=== PATIENT | female | born 1980 | race Hispanic/Latino ===

== ENCOUNTER 2017-08-02 20:37 | Emergency (ER) | payer MEDICAID, OTHER ==
[~2017-08-02 20:37] MED LIST: ACET1TAB12 PO; DOCU-116 PO; IBUP-2077 PO; INSU100C6 SQ; NPH,100V SQ; PREN1TAB89 PO
== END 2017-08-02 21:13 | disposition home or self-care (01) ==
LOC: EDH 20:37
DX: G51.0 Bell's palsy (principal); Z98.890 Other specified postprocedural states; Z72.0 Tobacco use

== ENCOUNTER 2017-08-05 19:24 | Emergency (ER) | payer SELFPAY ==
[2017-08-05 19:43] LABS: BASOPHILS % (AUTO) 0.7 % (0.0-5.0); EOSINOPHILS % (AUTO) 0.1 % (0.0-8.0); HEMATOCRIT 37.7 % (36-48); LYMPHOCYTES % (AUTO) 14.2 % (21.0-51.0); MEAN CORPUSCULAR HEMOGLOBIN 24.8 pg (27.0-33.0); MEAN CORPUSCULAR HGB CONC 32.5 g/dL (32.0-36.0); MEAN CORPUSCULAR VOLUME 76.4 fL (79-99); MONOCYTES % (AUTO) 3.9 % (3.0-13.0); NEUTROPHILS % (AUTO) 81.1 % (40.0-77.0); PLATELET COUNT (AUTO) 445 K/uL (130-400); RED BLOOD CELL COUNT(AUTO) 4.94 MIL/uL (4.00-5.50); RED CELL DISTRIBUTION WIDTH 17.4 % (11.0-15.5); WHITE BLOOD COUNT (AUTO) 14.4 K/uL (4.8-10.8)
[2017-08-05 19:53] LABS: CREATININE 0.7 mg/dL (0.5-1.5); POTASSIUM 3.9 mmol/L (3.5-5.1)
[2017-08-05 19:54] LABS: INR 0.93 (0.85-1.15); PROTHROMBIN TIME 9.8 SEC (9.6-11.6)
[2017-08-05 19:55] LABS: APPEARANCE,URINE Clear (CLEAR); BILIRUBIN,URINE Negative (NEGATIVE); COLOR,URINE Yellow (YELLOW); GLUCOSE, URINE (UA) Negative (NEGATIVE); HCG,QUAL RESULT NEGATIVE (NEGATIVE); KETONES,URINE Negative (NEGATIVE); LEUKOCYTE ESTERASE ,URINE Negative (NEGATIVE); NITRATE,URINE Negative (NEGATIVE); OCCULT BLOOD,URINE Negative (NEGATIVE); PH,URINE 5.5 (5.0-8.0); PROTEIN,URINE Negative (NEGATIVE); UROBILINOGEN,URINE 0.2 mg/dL (0.2-1.0)
[2017-08-05 20:03] LABS: AMPHET/METH SCREEN,URINE NEGATIVE (NEGATIVE); BARBITURATE SCREEN, URINE NEGATIVE (NEGATIVE); BENZODIAZEPINES SCREEN,URINE NEGATIVE (NEGATIVE); CANNABINOID SCREEN,URINE NEGATIVE (NEGATIVE); COCAINE SCREEN,URINE NEGATIVE (NEGATIVE); OPIATE SCREEN,URINE NEGATIVE (NEGATIVE); PHENCYCLIDINE SCREEN,URINE NEGATIVE (NEGATIVE)
[2017-08-05 20:09] LABS: ALBUMIN 3.6 g/dL (3.5-5.0); BILIRUBIN,TOTAL 0.2 mg/dL (0.2-1.0); CREATINE KINASE MB 0.6 ng/mL (0.5-3.6); TOTAL PROTEIN, SERUM 8.9 g/dL (6.0-8.3)
== END 2017-08-05 22:55 | disposition home or self-care (01) ==
LOC: EDH 19:24
DX: G51.0 Bell's palsy (principal); R03.0 Elevated blood-pressure reading, without diagnosis of hypertension; Z98.890 Other specified postprocedural states
CPT/HCPCS: 36415; 70450; 80053; 80305; 81003; 81025; 82550; 82553; 82948; 84484; 85025; 85610; 85730; 93005

== ENCOUNTER 2018-01-22 19:48 | Emergency (ER) | payer OTHER ==
[2018-01-22 20:12] LABS: APPEARANCE,URINE CLOUDY (CLEAR); BILIRUBIN,URINE NEGATIVE (NEGATIVE); COLOR,URINE YELLOW (YELLOW); GLUCOSE, URINE (UA) NEGATIVE (NEGATIVE); KETONES,URINE NEGATIVE (NEGATIVE); LEUKOCYTE ESTERASE ,URINE MODERATE (NEGATIVE); NITRATE,URINE NEGATIVE (NEGATIVE); OCCULT BLOOD,URINE LARGE (NEGATIVE); PROTEIN,URINE 100 (NEGATIVE); UROBILINOGEN,URINE 0.2 mg/dL (0.2-1.0)
[2018-01-22 20:20] LABS: AMPHET/METH SCREEN,URINE NEGATIVE (NEGATIVE); BARBITURATE SCREEN, URINE NEGATIVE (NEGATIVE); BENZODIAZEPINES SCREEN,URINE NEGATIVE (NEGATIVE); CANNABINOID SCREEN,URINE NEGATIVE (NEGATIVE); COCAINE SCREEN,URINE NEGATIVE (NEGATIVE); OPIATE SCREEN,URINE POSITIVE (NEGATIVE); PHENCYCLIDINE SCREEN,URINE NEGATIVE (NEGATIVE)
[2018-01-22 20:22] LABS: BASOPHILS % (AUTO) 0.7 % (0.0-5.0); EOSINOPHILS % (AUTO) 0.5 % (0.0-8.0); HEMATOCRIT 34.4 % (36-48); LYMPHOCYTES % (AUTO) 9.5 % (21.0-51.0); MEAN CORPUSCULAR HEMOGLOBIN 24.8 pg (27.0-33.0); MEAN CORPUSCULAR HGB CONC 32.4 g/dL (32.0-36.0); MEAN CORPUSCULAR VOLUME 76.4 fL (79-99); NEUTROPHILS % (AUTO) 83.3 % (40.0-77.0); PLATELET COUNT (AUTO) 400 K/uL (130-400); RED CELL DISTRIBUTION WIDTH 16.8 % (11.0-15.5); WHITE BLOOD COUNT (AUTO) 13.2 K/uL (4.8-10.8)
[2018-01-22 20:31] LABS: BACTERIA,URINE Few /HPF (None Seen); RBC,URINE 26-50 /HPF (0-1); SQUAMOUS EPITHELIAL CELL,UR Rare /HPF (0-2); WBC,URINE 26-50 /HPF (0-1)
[2018-01-22 20:34] LABS: CREATININE 0.6 mg/dL (0.5-1.5); POTASSIUM 4.1 mmol/L (3.5-5.1)
[2018-01-22 20:37] LABS: ALBUMIN 3.3 g/dL (3.5-5.0); BILIRUBIN,TOTAL 0.3 mg/dL (0.2-1.0); TOTAL PROTEIN, SERUM 8.5 g/dL (6.0-8.3)
[2018-01-22] MEDS ORDERED: ONDANSETRON HCL 4 MG/2 ML VIAL ONE (20:49)
[2018-01-22] MEDS ORDERED: KETOROLAC TROMETHAMINE 30MG/ML ONE (20:49)
[2018-01-22] MEDS ORDERED: PHENAZOPYRIDINE HCL 200 MG TABLET ONE (21:43)
[2018-01-22] MEDS ORDERED: LEVOFLOXACIN 500 MG TABLET ONE (21:43)
== END 2018-01-22 22:03 | disposition home or self-care (01) ==
LOC: EDH 19:48
DX: N12 Tubulo-interstitial nephritis, not specified as acute or chronic (principal); R42 Dizziness and giddiness; Z87.891 Personal history of nicotine dependence
CPT/HCPCS: 36415; 74176; 80053; 80305; 81001; 81025; 85025; 87077; 87088; 87186; 94761; 96361; 96374; 96375; 99285; J1885; J2405

== ENCOUNTER 2018-02-05 22:36 | Inpatient (IN) | payer SELFPAY ==
[~2018-02-05] VITALS: Ht 162.6 cm; Wt 107.1 kg
[2018-02-05] MEDS ORDERED: METOCLOPRAMIDE 10 MG/2 ML VIAL ONE (23:15)
[2018-02-05] MEDS ORDERED: MORPHINE SULFATE 8 MG/ML VIAL ONE (23:16)
[2018-02-05 23:21] LABS: BASOPHILS % (AUTO) 0.6 % (0.0-5.0); HEMATOCRIT 33.7 % (36-48); LYMPHOCYTES % (AUTO) 18.8 % (21.0-51.0); MEAN CORPUSCULAR HEMOGLOBIN 24.6 pg (27.0-33.0); MEAN CORPUSCULAR HGB CONC 32.4 g/dL (32.0-36.0); MEAN CORPUSCULAR VOLUME 76.2 fL (79-99); MONOCYTES % (AUTO) 6.6 % (3.0-13.0); PLATELET COUNT (AUTO) 436 K/uL (130-400); RED BLOOD CELL COUNT(AUTO) 4.43 MIL/uL (4.00-5.50); RED CELL DISTRIBUTION WIDTH 16.5 % (11.0-15.5); WHITE BLOOD COUNT (AUTO) 12.1 K/uL (4.8-10.8)
[2018-02-05 23:34] LABS: CREATININE 0.8 mg/dL (0.5-1.5); POTASSIUM 3.9 mmol/L (3.5-5.1)
[2018-02-05 23:37] LABS: APPEARANCE,URINE SL CLOUDY (CLEAR); BILIRUBIN,URINE NEGATIVE (NEGATIVE); COLOR,URINE YELLOW (YELLOW); GLUCOSE, URINE (UA) NEGATIVE (NEGATIVE); KETONES,URINE NEGATIVE (NEGATIVE); LEUKOCYTE ESTERASE ,URINE MODERATE (NEGATIVE); NITRATE,URINE POSITIVE (NEGATIVE); OCCULT BLOOD,URINE MODERATE (NEGATIVE); PROTEIN,URINE 30 (NEGATIVE); UROBILINOGEN,URINE 0.2 mg/dL (0.2-1.0)
[2018-02-05 23:38] LABS: ALBUMIN 3.3 g/dL (3.5-5.0); BILIRUBIN,TOTAL 0.2 mg/dL (0.2-1.0); TOTAL PROTEIN, SERUM 8.2 g/dL (6.0-8.3)
[2018-02-05 23:39] LABS: HCG,QUAL RESULT NEGATIVE (NEGATIVE)
[2018-02-05 23:47] LABS: RBC,URINE 26-50 /HPF (0-1); WBC,URINE 51-100 /HPF (0-1)
[2018-02-05 23:48] LABS: BACTERIA,URINE Many /HPF (None Seen); SQUAMOUS EPITHELIAL CELL,UR 0-2 /HPF (0-2)
[2018-02-05 23:56] LABS: PLATELET MORPHOLOGY LARGE PLTS PRESENT
[2018-02-06] MEDS ORDERED: IOHEXOL-350 75 ML VIAL IV ONE (00:20)
[2018-02-06] MEDS ORDERED: MORPHINE SULFATE 8 MG/ML VIAL ONE (01:11)
[2018-02-06] MEDS ORDERED: ZOSYN 3.375GM+NS 50ML 50 ML IV ONE (01:11)
[2018-02-06] MEDS ORDERED: SODIUM CHLORIDE 0.9% 50 ML IV ONE (01:11)
[2018-02-06] MEDS: ZOSYN 3.375GM+NS 50ML 50 ML IV SCH ×3 (01:45→18:09)
[2018-02-06] MEDS: SODIUM CHLORIDE 0.9% 1000ML 1,000 ML IV SCH ×4 (02:00→23:21)
[2018-02-06] MEDS ORDERED: PHARMACY COMMUNICATION MISC SCH (02:00)
[2018-02-06 03:25] VITALS: BP 132/92
[2018-02-06] MEDS ORDERED: ACETAMINOPHEN 325 MG TAB PO PRN (04:00)
[2018-02-06] MEDS ORDERED: MORPHINE SULFATE 2 MG/ML 1ML SYG IV PRN (04:00)
[2018-02-06] MEDS ORDERED: ONDANSETRON HCL MDV 20ML 2 MG/ML VIAL IV PRN (04:00)
[2018-02-06 06:12] LABS: BASOPHILS % (AUTO) 0.6 % (0.0-5.0); HEMATOCRIT 29.4 % (36-48); LYMPHOCYTES % (AUTO) 21.4 % (21.0-51.0); MEAN CORPUSCULAR HEMOGLOBIN 23.8 pg (27.0-33.0); MEAN CORPUSCULAR HGB CONC 31.2 g/dL (32.0-36.0); MEAN CORPUSCULAR VOLUME 76.2 fL (79-99); PLATELET COUNT (AUTO) 294 K/uL (130-400); RED BLOOD CELL COUNT(AUTO) 3.86 MIL/uL (4.00-5.50); RED CELL DISTRIBUTION WIDTH 16.7 % (11.0-15.5); WHITE BLOOD COUNT (AUTO) 11.5 K/uL (4.8-10.8)
[2018-02-06 06:21] LABS: INR 0.97 (0.85-1.15); PARTIAL THROMBOPLASTIN TIME 29.9 SEC (26.3-35.5); PROTHROMBIN TIME 10.2 SEC (9.6-11.6)
[2018-02-06 06:27] LABS: ALBUMIN 2.7 g/dL (3.5-5.0); BILIRUBIN,TOTAL 0.1 mg/dL (0.2-1.0); CREATININE 0.6 mg/dL (0.5-1.5); POTASSIUM 3.9 mmol/L (3.5-5.1); TOTAL PROTEIN, SERUM 6.9 g/dL (6.0-8.3)
[2018-02-06 07:54] VITALS: BP 105/64
[2018-02-06] MEDS ORDERED: PNEUMOCOCCAL VACCINE POLYVALENT 0.5 ML/VIAL [PPV] IM ONE (09:00)
[2018-02-06] MEDS ORDERED: ENOXAPARIN SODIUM 40 MG/0.4 ML SYRINGE SQ SCH (09:00)
[2018-02-06] MEDS: FAMOTIDINE/PF 20 MG/2 ML VIAL IV SCH ×2 (09:16→20:25)
[2018-02-06] MEDS: KETOROLAC TROMETHAMINE 30MG/ML IV PRN ×2 (09:23→15:49)
[2018-02-06 11:54] VITALS: BP 98/52
[2018-02-06 15:59] VITALS: BP 116/73
[2018-02-06 19:00] VITALS: BP 132/80
[2018-02-06 23:00] VITALS: BP 102/58
[2018-02-07] MEDS: ZOSYN 3.375GM+NS 50ML 50 ML IV SCH ×3 (01:45→17:36)
[2018-02-07 03:00] VITALS: BP 104/57
[2018-02-07] MEDS: KETOROLAC TROMETHAMINE 30MG/ML IV PRN ×2 (04:13→21:00)
[2018-02-07 05:56] LABS: HEMATOCRIT 28.6 % (36-48); MEAN CORPUSCULAR HEMOGLOBIN 24.2 pg (27.0-33.0); MEAN CORPUSCULAR HGB CONC 32.1 g/dL (32.0-36.0); MEAN CORPUSCULAR VOLUME 75.5 fL (79-99); NUCLEATED RED BLOOD CELLS 0.1 % (0.0-0.19); PLATELET COUNT (AUTO) 318 K/uL (130-400); RED BLOOD CELL COUNT(AUTO) 3.79 MIL/uL (4.00-5.50); RED CELL DISTRIBUTION WIDTH 16.5 % (11.0-15.5); WHITE BLOOD COUNT (AUTO) 7.5 K/uL (4.8-10.8)
[2018-02-07 06:08] LABS: CREATININE 0.6 mg/dL (0.5-1.5); POTASSIUM 3.4 mmol/L (3.5-5.1)
[2018-02-07] MEDS ORDERED: POTASSIUM CHLORIDE 20 MEQ ERTAB PO ONE (06:26)
[2018-02-07] MEDS ORDERED: LIDOCAINE HCL-MPF 1% 2ML VIAL IVP PRN (06:30)
[2018-02-07] MEDS ORDERED: POTASSIUM CHLORIDE 20MEQ/100ML 100 ML IV PRN ×2 (06:30)
[2018-02-07] MEDS ORDERED: POTASSIUM CHLORIDE 20 MEQ ERTAB PO PRN (06:30)
[2018-02-07] MEDS ORDERED: POTASSIUM CHLORIDE 10% ELIXIR 20 MEQ/15 ML UDCUP PO PRN (06:30)
[2018-02-07] MEDS: SODIUM CHLORIDE 0.9% 1000ML 1,000 ML IV SCH ×2 (06:30→18:10)
[2018-02-07 07:56] VITALS: BP 125/73
[2018-02-07] MEDS: FAMOTIDINE/PF 20 MG/2 ML VIAL IV SCH ×2 (08:00→20:51)
[2018-02-07 11:25] VITALS: BP 103/73
[2018-02-07 15:22] VITALS: BP 107/82
[2018-02-07 19:00] VITALS: BP 114/55
[2018-02-07 23:00] VITALS: BP 104/53
[2018-02-08] VITALS (21 sets, daily range): BP systolic 86–132; BP diastolic 52–79
[2018-02-08] MEDS: SODIUM CHLORIDE 0.9% 1000ML 1,000 ML IV SCH ×2 (01:13→18:00)
[2018-02-08] MEDS: ZOSYN 3.375GM+NS 50ML 50 ML IV SCH ×3 (01:44→17:45)
[2018-02-08] MEDS: KETOROLAC TROMETHAMINE 30MG/ML IV PRN ×4 (03:50→21:47)
[2018-02-08] MEDS: FAMOTIDINE/PF 20 MG/2 ML VIAL IV SCH ×2 (09:02→21:47)
[2018-02-08] MEDS ORDERED: LIDOCAINE 1%-EPI 1:100,000 20 ML VIAL IJ ONE (13:23)
[2018-02-08] MEDS ORDERED: BUPIVACAINE/PF 0.25% 30ML VIAL IJ ONE (13:23)
[2018-02-08] MEDS ORDERED: LACTATED RINGERS 1000ML 1,000 ML IV ONE (16:26)
[2018-02-08] MEDS ORDERED: GLYCOPYRROLATE 1 MG/5 ML SYRINGE ONE (16:32)
[2018-02-08] MEDS ORDERED: SUCCINYLCHOLINE 200MG/10ML SYR ONE (16:32)
[2018-02-08] MEDS ORDERED: ONDANSETRON HCL 4 MG/2 ML VIAL ONE ×2 (16:32→16:36)
[2018-02-08] MEDS ORDERED: LIDOCAINE PF 2% 5ML ABBOJECT ONE (16:32)
[2018-02-08] MEDS ORDERED: DEXAMETHASONE SOD PHOSPHATE 10MG/ML 1ML VIAL ONE (16:32)
[2018-02-08] MEDS ORDERED: MIDAZOLAM HCL 1 MG/ML 2ML VIAL ONE (16:32)
[2018-02-08] MEDS ORDERED: NEOSTIGMINE 5MG/5ML SYR IV ONE (16:33)
[2018-02-08] MEDS ORDERED: FENTANYL CITRATE PF 50 MCG/1 ML 2ML VIAL ONE ×2 (16:33→17:00)
[2018-02-08] MEDS ORDERED: ROCURONIUM 10MG/1ML SYR 10 MG/ML ML ONE (16:33)
[2018-02-08] MEDS ORDERED: PROPOFOL 10 MG/ML 20ML VIAL IV ONE (16:33)
[2018-02-08] MEDS ORDERED: IPRATROPIUM/ALBUTEROL SULFATE 3 ML SOLUTION IH ONE (17:55)
[2018-02-08] MEDS ORDERED: MEPERIDINE-PF 25 MG/ML SYG ONE (18:06)
[2018-02-08] MEDS ORDERED: OXYCODONE/ACETAMIN 5/325MG TAB PO PRN (20:45)
[2018-02-08] MEDS: MORPHINE SULFATE 4 MG/1ML SYG IV PRN (23:31)
[2018-02-09] MEDS: ZOSYN 3.375GM+NS 50ML 50 ML IV SCH ×3 (01:31→17:45)
[2018-02-09] MEDS: SODIUM CHLORIDE 0.9% 1000ML 1,000 ML IV SCH (01:32)
[2018-02-09] MEDS: MORPHINE SULFATE 4 MG/1ML SYG IV PRN ×2 (03:53→12:20)
[2018-02-09 04:00] VITALS: BP 112/73
[2018-02-09 07:00] VITALS: BP 125/74
[2018-02-09] MEDS: FAMOTIDINE/PF 20 MG/2 ML VIAL IV SCH (09:41)
[2018-02-09 11:13] VITALS: BP 140/92
[2018-02-09 16:00] VITALS: BP 110/71
[2018-02-09] MEDS ORDERED: LEVO500T2 PO (17:03)
== END 2018-02-09 19:30 | disposition home or self-care (01) | DRG 418 ==
LOC: EDH 22:36 → EDHIP 22:37 → 3AH 02-06 02:50
PROVIDERS: ADMIT Internal Medicine; ATTEND Internal Medicine
PROC: 3E02340 Introduction of Influenza Vaccine into Muscle, Percutaneous Approach (ICD-10-PCS; 2018-02-06)
PROC: 3E02340 Introduction of Influenza Vaccine into Muscle, Percutaneous Approach (ICD-10-PCS; 2018-02-07)
PROC: 0FT44ZZ Resection of Gallbladder, Percutaneous Endoscopic Approach (ICD-10-PCS; principal; 2018-02-08 16:40)
DX: K80.00 Calculus of gallbladder with acute cholecystitis without obstruction (principal); N10 Acute pyelonephritis; Z68.41 Body mass index [BMI] 40.0-44.9, adult; K57.90 Diverticulosis of intestine, part unspecified, without perforation or abscess without bleeding; E66.01 Morbid (severe) obesity due to excess calories; K76.0 Fatty (change of) liver, not elsewhere classified; B96.20 Unspecified Escherichia coli [E. coli] as the cause of diseases classified elsewhere; E11.9 Type 2 diabetes mellitus without complications; Z16.24 Resistance to multiple antibiotics; Z83.3 Family history of diabetes mellitus; Z87.891 Personal history of nicotine dependence; Z82.5 Family history of asthma and other chronic lower respiratory diseases; Z23 Encounter for immunization; Z79.4 Long term (current) use of insulin; Z82.49 Family history of ischemic heart disease and other diseases of the circulatory system
CPT/HCPCS: 36415; 74177; 76705; 80048; 80053; 81001; 81025; 83605; 83690; 85025; 85027; 85610; 85730; 87040; 87077; 87088; 87186; 87324; 88304; 93005; 94640; G0008; J0330; J1100; J1885; J2001; J2175; J2250; J2270; J2405; J2543; J2704; J2710; J2765; J3010; J3490; J7030; J7120; Q2038; Q9967

== ENCOUNTER 2018-05-28 20:56 | Emergency (ER) | payer OTHER ==
[~2018-05-28 20:56] MED LIST changes: +LEVO500T2 PO
== END 2018-05-28 23:29 | disposition home or self-care (01) ==
LOC: EDH 20:56
DX: H10.9 Unspecified conjunctivitis (principal)
CPT/HCPCS: 99281

== ENCOUNTER 2018-08-16 16:44 | Emergency (ER) | payer OTHER ==
[2018-08-16 17:38] LABS: APPEARANCE,URINE Clear (CLEAR); BILIRUBIN,URINE Negative (NEGATIVE); COLOR,URINE Yellow (YELLOW); GLUCOSE, URINE (UA) Negative (NEGATIVE); KETONES,URINE Trace mg/dL (NEGATIVE); LEUKOCYTE ESTERASE ,URINE Trace (NEGATIVE); NITRATE,URINE Negative (NEGATIVE); OCCULT BLOOD,URINE Negative (NEGATIVE); PROTEIN,URINE Negative (NEGATIVE)
[2018-08-16 17:51] LABS: HCG,QUAL RESULT NEGATIVE (NEGATIVE)
[2018-08-16 18:12] LABS: BACTERIA,URINE Few /HPF (None Seen); RBC,URINE 0-1 /HPF (0-1); SQUAMOUS EPITHELIAL CELL,UR Few /HPF (0-2)
[2018-08-16] MEDS ORDERED: SODIUM CHLORIDE 0.9% 1000ML 1,000 ML IV ONE (18:25)
[2018-08-16] MEDS ORDERED: ONDANSETRON HCL 4 MG/2 ML VIAL ONE (18:26)
[2018-08-16] MEDS ORDERED: KETOROLAC TROMETHAMINE 30MG/ML ONE (18:26)
[2018-08-16 18:34] LABS: BASOPHILS % (AUTO) 0.5 % (0.0-5.0); EOSINOPHILS % (AUTO) 1.9 % (0.0-8.0); HEMATOCRIT 33.1 % (36-48); LYMPHOCYTES % (AUTO) 24.9 % (21.0-51.0); MEAN CORPUSCULAR HEMOGLOBIN 24.8 pg (27.0-33.0); MEAN CORPUSCULAR HGB CONC 32.7 g/dL (32.0-36.0); MEAN CORPUSCULAR VOLUME 75.8 fL (79-99); MONOCYTES % (AUTO) 8.2 % (3.0-13.0); NEUTROPHILS % (AUTO) 64.5 % (40.0-77.0); PLATELET COUNT (AUTO) 328 K/uL (130-400); RED BLOOD CELL COUNT(AUTO) 4.36 MIL/uL (4.00-5.50); RED CELL DISTRIBUTION WIDTH 17.7 % (11.0-15.5); WHITE BLOOD COUNT (AUTO) 7.7 K/uL (4.8-10.8)
[2018-08-16 18:42] LABS: CREATININE 0.7 mg/dL (0.5-1.5); POTASSIUM 3.6 mmol/L (3.5-5.1)
[2018-08-16 18:55] LABS: ALBUMIN 3.2 g/dL (3.5-5.0); BILIRUBIN,TOTAL 0.2 mg/dL (0.2-1.0); TOTAL PROTEIN, SERUM 7.8 g/dL (6.0-8.3)
[2018-08-16] MEDS ORDERED: MORPHINE SULFATE 4 MG/1ML SYG ONE (20:20)
== END 2018-08-16 20:40 | disposition home or self-care (01) ==
LOC: EDH 16:44
DX: S93.491A Sprain of other ligament of right ankle, initial encounter (principal); R10.84 Generalized abdominal pain; F32.9 Major depressive disorder, single episode, unspecified; F41.9 Anxiety disorder, unspecified; Z90.49 Acquired absence of other specified parts of digestive tract; Z87.891 Personal history of nicotine dependence; X50.1XXA Overexertion from prolonged static or awkward postures, initial encounter; Y93.01 Activity, walking, marching and hiking; Y92.238 Other place in hospital as the place of occurrence of the external cause; Y99.8 Other external cause status
CPT/HCPCS: 36415; 73610; 74176; 80053; 81001; 81025; 82150; 83690; 84702; 85025; 96374; 96375; 99285; J1885; J2270; J2405; J7030

== ENCOUNTER 2019-08-09 03:13 | Emergency (ER) | payer OTHER ==
[2019-08-09] MEDS ORDERED: ACETAMINOPHEN EXTRA STRENGTH 500 MG TABLET ONE (03:54)
== END 2019-08-09 04:09 | disposition home or self-care (01) ==
LOC: EDH 03:13
DX: M54.2 Cervicalgia (principal); M54.6 Pain in thoracic spine; F41.9 Anxiety disorder, unspecified; F32.9 Major depressive disorder, single episode, unspecified; Z72.0 Tobacco use; Z98.890 Other specified postprocedural states; V47.5XXA Car driver injured in collision with fixed or stationary object in traffic accident, initial encounter; Y93.89 Activity, other specified; Y92.89 Other specified places as the place of occurrence of the external cause; Y99.8 Other external cause status

== ENCOUNTER 2022-04-28 12:05 | Emergency (ER) | payer MEDICAID, OTHER ==
[~2022-04-28] VITALS: Ht 162.6 cm; Wt 104.3 kg
[2022-04-28 12:15] VITALS: BP 126/73
[2022-04-28] MEDS ORDERED: 0.9%NACL 1000ML 1,000 ML IV ONE (12:30)
[2022-04-28 13:22] LABS: ABG BASE EXCESS -0.8 mmol/L (-2.0-3.0); ABG HCO3 23.5 mmol/L (21.0-28.0); ABG PCO2 38 mmHg (32-45)
[2022-04-28] MEDS ORDERED: METOCLOPRAMIDE 10 MG/2 ML VIAL IVP ONE (13:30)
[2022-04-28] MEDS ORDERED: DiphenhydrAMINE HCL 50 MG/ML VIAL IV ONE (13:30)
[2022-04-28] MEDS ORDERED: KETOROLAC 15MG/ML VIAL (15MG/ML) IV ONE (13:30)
[2022-04-28 13:37] LABS: BASOPHILS % (AUTO) 0.3 % (0.0-5.0); EOSINOPHILS % (AUTO) 1.7 % (0.0-8.0); HEMATOCRIT 36.1 % (36-48); LYMPHOCYTES % (AUTO) 23.1 % (21.0-51.0); MEAN CORPUSCULAR HEMOGLOBIN 25.5 pg (27.0-33.0); MEAN CORPUSCULAR HGB CONC 31.6 g/dL (32.0-36.0); MEAN CORPUSCULAR VOLUME 80.8 fL (79-99); MONOCYTES % (AUTO) 6.7 % (3.0-13.0); NEUTROPHILS % (AUTO) 67.8 % (40.0-77.0); PLATELET COUNT (AUTO) 290 K/uL (130-400); RED BLOOD CELL COUNT(AUTO) 4.47 MIL/uL (4.00-5.50); RED CELL DISTRIBUTION WIDTH 14.7 % (11.0-15.5); WHITE BLOOD COUNT (AUTO) 9.6 K/uL (4.8-10.8)
[2022-04-28 13:50] LABS: CREATININE 0.7 mg/dL (0.5-1.5); POTASSIUM 3.7 mmol/L (3.5-5.1)
[2022-04-28 13:55] LABS: ALBUMIN 3.1 g/dL (3.5-5.0); TOTAL PROTEIN, SERUM 7.5 g/dL (6.0-8.3)
[2022-04-28 13:56] LABS: APPEARANCE,URINE CLOUDY (CLEAR); BILIRUBIN,URINE NEGATIVE (NEGATIVE); COLOR,URINE YELLOW (YELLOW); GLUCOSE, URINE (UA) 150 mg/dL (NEGATIVE); KETONES,URINE NEGATIVE (NEGATIVE); LEUKOCYTE ESTERASE ,URINE 75 Leu/uL (NEGATIVE); NITRATE,URINE NEGATIVE (NEGATIVE); OCCULT BLOOD,URINE NEGATIVE (NEGATIVE); PH,URINE 5.5 (5.0-8.0); PROTEIN,URINE 20 mg/dL (NEGATIVE); UROBILINOGEN,URINE 0.2 mg/dL (0.2-1.0)
[2022-04-28 14:02] LABS: HCG,QUALITATIVE URINE NEGATIVE (NEGATIVE)
[2022-04-28 14:05] LABS: BACTERIA,URINE RARE /HPF (None Seen); MUCUS,URINE FEW LPF (None Seen); SQUAMOUS EPITHELIAL CELL,UR MOD /HPF (0-2)
[2022-04-28] MEDS ORDERED: CEPH500B PO (14:39)
== END 2022-04-28 14:51 | disposition home or self-care (01) ==
LOC: EDH 12:05
DX: E11.65 Type 2 diabetes mellitus with hyperglycemia (principal); R30.0 Dysuria; F41.9 Anxiety disorder, unspecified; F32.9 Major depressive disorder, single episode, unspecified; Z90.49 Acquired absence of other specified parts of digestive tract; Z98.890 Other specified postprocedural states; Z79.899 Other long term (current) drug therapy
CPT/HCPCS: 99284; 96374; 96375; 96361; 80053; 82803; 85025; 87088; 82010; 81001; 81025; 36415; 36600; J1200; J7030; J2765; J1885

== ENCOUNTER 2022-08-21 09:00 | Observation (INO) | payer MEDICAID ==
[~2022-08-21] VITALS: Ht 162.6 cm; Wt 101.2 kg
[2022-08-21] VITALS (18 sets, daily range): BP systolic 100–136; BP diastolic 58–73
[~2022-08-21 09:00] MED LIST changes: +CEPH500B PO
[2022-08-21 09:31] LABS: APPEARANCE,URINE CLOUDY (CLEAR); BILIRUBIN,URINE NEGATIVE (NEGATIVE); COLOR,URINE LIGHT-ORANGE (YELLOW); GLUCOSE, URINE (UA) NEGATIVE (NEGATIVE); KETONES,URINE NEGATIVE (NEGATIVE); LEUKOCYTE ESTERASE ,URINE 75 Leu/uL (NEGATIVE); NITRATE,URINE NEGATIVE (NEGATIVE); OCCULT BLOOD,URINE LARGE (NEGATIVE); PH,URINE 5.5 (5.0-8.0); PROTEIN,URINE 30 mg/dL (NEGATIVE); UROBILINOGEN,URINE 0.2 mg/dL (0.2-1.0)
[2022-08-21 09:32] LABS: HCG,QUALITATIVE URINE NEGATIVE (NEGATIVE)
[2022-08-21 09:37] LABS: BACTERIA,URINE RARE /HPF (None Seen); MUCUS,URINE FEW LPF (None Seen); RBC,URINE TNTC /HPF (0-1); SQUAMOUS EPITHELIAL CELL,UR FEW /HPF (0-2); WBC,URINE 26-50 /HPF (0-1)
[2022-08-21 09:42] LABS: BASOPHILS % (AUTO) 0.2 % (0.0-5.0); EOSINOPHILS % (AUTO) 1.8 % (0.0-8.0); HEMATOCRIT 29.4 % (36-48); LYMPHOCYTES % (AUTO) 22.2 % (21.0-51.0); MEAN CORPUSCULAR HEMOGLOBIN 25.5 pg (27.0-33.0); MEAN CORPUSCULAR HGB CONC 31.6 g/dL (32.0-36.0); MEAN CORPUSCULAR VOLUME 80.5 fL (79-99); MONOCYTES % (AUTO) 7.9 % (3.0-13.0); NEUTROPHILS % (AUTO) 67.5 % (40.0-77.0); PLATELET COUNT (AUTO) 339 K/uL (130-400); RED BLOOD CELL COUNT(AUTO) 3.65 MIL/uL (4.00-5.50); RED CELL DISTRIBUTION WIDTH 15.5 % (11.0-15.5); WHITE BLOOD COUNT (AUTO) 10.7 K/uL (4.8-10.8)
[2022-08-21 09:52] LABS: CREATININE 0.9 mg/dL (0.5-1.5); POTASSIUM 3.4 mmol/L (3.5-5.1)
[2022-08-21 09:57] LABS: ALBUMIN 3.2 g/dL (3.5-5.0); TOTAL PROTEIN, SERUM 7.6 g/dL (6.0-8.3)
[2022-08-21] MEDS ORDERED: KETOROLAC 30MG VIAL (30MG/ML) IVP ONE (10:30)
[2022-08-21] MEDS ORDERED: METOCLOPRAMIDE 10 MG/2 ML VIAL IVP ONE (10:30)
[2022-08-21] MEDS ORDERED: FAMOTIDINE 20MG VIAL IV ONE (10:30)
[2022-08-21] MEDS ORDERED: CEFTRIAXONE 2GM VIAL IVPB ONE (12:30)
[2022-08-21] MEDS ORDERED: 0.9%NACL 1000ML 1,000 ML IV ONE (12:30)
[2022-08-21] MEDS ORDERED: 0.9%NACL 1000ML 1,000 ML IV SCH (15:30)
[2022-08-21] MEDS ORDERED: CEFTRIAXONE 1G VIAL 1 GM in 0.9%NACL 50ML 50 ML IV SCH (15:30)
[2022-08-21] MEDS ORDERED: MORPHINE 2 MG SYG IV PRN (15:30)
[2022-08-21] MEDS ORDERED: ACETAMINOPHEN WITH CODEINE 1 TAB TAB PO PRN (15:30)
[2022-08-21] MEDS ORDERED: ACETAMINOPHEN 325 MG TAB PO PRN ×2 (15:30)
[2022-08-21] MEDS ORDERED: POTASSIUM CHLORIDE 20MEQ/100ML 100 ML IV PRN (17:00)
[2022-08-21] MEDS ORDERED: DEXTROSE 50%-WATER 50 ML DISP.SYRIN IV PRN (17:00)
[2022-08-21] MEDS ORDERED: GLUCAGON 1MG KIT 1 MG ML IM PRN (17:00)
[2022-08-21] MEDS ORDERED: sumatriptan PO (18:14)
[2022-08-21] MEDS ORDERED: SEMA0.258 SQ (18:14)
[2022-08-21] MEDS ORDERED: METF-444 PO (18:14)
[2022-08-21] MEDS ORDERED: ASCO100031 PO (18:14)
[2022-08-21] MEDS ORDERED: FERR325T22 PO (18:14)
[2022-08-21] MEDS ORDERED: GABA300S3 PO (18:14)
[2022-08-21] MEDS ORDERED: SERT25TA PO (18:14)
[2022-08-21] MEDS ORDERED: LISI10TA24 PO (18:14)
[2022-08-21] MEDS ORDERED: ATOR20TA65 PO (18:14)
[2022-08-21] MEDS ORDERED: INSU100V37 SQ (18:14)
[2022-08-21] MEDS ORDERED: TRAM50TA4 PO (18:14)
[2022-08-21] MEDS ORDERED: VITAD50000 PO (18:14)
[2022-08-21] MEDS ORDERED: TAMS-1 PO (18:14)
[2022-08-21] MEDS: ONDANSETRON 4MG INJ IV PRN (18:23)
[2022-08-21] MEDS ORDERED: IOHEXOL-350 50ML VIAL IV ONE (20:45)
[2022-08-21] MEDS ORDERED: PROPOFOL 10 MG/ML 20ML VIAL IV ONE (20:59)
[2022-08-21] MEDS ORDERED: MIDAZOLAM HCL 1 MG/ML 2ML VIAL ONE (20:59)
[2022-08-21] MEDS ORDERED: LIDOCAINE PF 100MG/5ML (2%) SYRINGE 5ML ONE (20:59)
[2022-08-21] MEDS ORDERED: FENTANYL CITRATE PF 50 MCG/1 ML 2ML VIAL ONE (21:00)
[2022-08-21] MEDS ORDERED: ONDANSETRON 4MG INJ ONE (21:18)
[2022-08-21] MEDS ORDERED: GLYCOPYRROLATE 1 MG/5 ML SYRINGE ONE (21:25)
[2022-08-21] MEDS ORDERED: KETOROLAC 30MG VIAL (30MG/ML) ONE (21:27)
[2022-08-21] MEDS ORDERED: KETOROLAC 15MG/ML VIAL (15MG/ML) IV PRN (23:00)
[2022-08-21] MEDS ORDERED: HYDROCODONE/ACETAMINOPHEN 5/325 MG TAB PO PRN (23:00)
[2022-08-21] MEDS: FAMOTIDINE 20MG VIAL IV SCH (23:25)
[2022-08-22 01:25] VITALS: BP 128/69
[2022-08-22 03:30] VITALS: BP 96/54
[2022-08-22] MEDS: ONDANSETRON 4MG INJ IV PRN (06:10)
[2022-08-22 07:32] VITALS: BP 119/53
[2022-08-22 08:22] LABS: BASOPHILS % (AUTO) 0.3 % (0.0-5.0); HEMATOCRIT 30.6 % (36-48); LYMPHOCYTES % (AUTO) 11.7 % (21.0-51.0); MEAN CORPUSCULAR HEMOGLOBIN 25.7 pg (27.0-33.0); MEAN CORPUSCULAR HGB CONC 31.4 g/dL (32.0-36.0); MEAN CORPUSCULAR VOLUME 81.8 fL (79-99); MONOCYTES % (AUTO) 4.2 % (3.0-13.0); NEUTROPHILS % (AUTO) 83.5 % (40.0-77.0); PLATELET COUNT (AUTO) 406 K/uL (130-400); RED BLOOD CELL COUNT(AUTO) 3.74 MIL/uL (4.00-5.50); RED CELL DISTRIBUTION WIDTH 15.6 % (11.0-15.5); WHITE BLOOD COUNT (AUTO) 9.7 K/uL (4.8-10.8)
[2022-08-22] MEDS ORDERED: KCL 20 MEQ ERTAB PO SCH (08:30)
[2022-08-22] MEDS ORDERED: CEFTRIAXONE 1G VIAL IVPB SCH (09:00)
[2022-08-22] MEDS ORDERED: SUMATRIPTAN SUCCINATE 25 MG TABLET PO PRN (09:30)
[2022-08-22] MEDS ORDERED: TRAMADOL HCL 50 MG TABLET PO PRN (09:30)
[2022-08-22] MEDS ORDERED: SEMAGLUTIDE 0.5 MG SQ SCH (09:30)
[2022-08-22] MEDS ORDERED: CEPH500B PO (09:34)
[2022-08-22] MEDS: FAMOTIDINE 20MG VIAL IV SCH (09:49)
[2022-08-22 09:55] LABS: CREATININE 0.8 mg/dL (0.5-1.5); POTASSIUM 3.8 mmol/L (3.5-5.1)
[2022-08-22 09:59] LABS: ALBUMIN 3.2 g/dL (3.5-5.0); TOTAL PROTEIN, SERUM 7.7 g/dL (6.0-8.3)
[2022-08-22] MEDS ORDERED: FERROUS SULFATE 325 MG TABLET.DR PO SCH (11:04)
[2022-08-22] MEDS ORDERED: GABAPENTIN 300 MG CAPSULE PO SCH (14:00)
[2022-08-22] MEDS ORDERED: METFORMIN HCL 500 MG TABLET PO SCH (17:00)
[2022-08-22] MEDS ORDERED: SERTRALINE HCL 50 MG TABLET PO SCH (21:00)
[2022-08-22] MEDS ORDERED: ATORVASTATIN 20 MG TABLET PO SCH (21:00)
[2022-08-22] MEDS ORDERED: TAMSULOSIN HCL 0.4 MG CAP.ER.24H PO SCH (21:00)
[2022-08-22] MEDS ORDERED: INSULIN DEGLUDEC 35 UNIT SQ SCH (21:00)
[2022-08-23] MEDS ORDERED: LISINOPRIL 10 MG TABLET PO SCH (09:00)
[2022-08-23] MEDS ORDERED: ASCORBIC ACID 500 MG TAB PO SCH (09:00)
[2022-08-23] MEDS ORDERED: CHOLECALCIFEROL 5000 UNIT PO SCH (09:00)
== END 2022-08-22 11:32 | disposition home or self-care (01) ==
LOC: EDH 09:00 → EDHIP 09:01 → WSH 16:50
PROVIDERS: ADMIT Hospitalist; ATTEND Hospitalist
DX: N13.30 Unspecified hydronephrosis (principal); N20.0 Calculus of kidney; I10 Essential (primary) hypertension; E11.9 Type 2 diabetes mellitus without complications; E87.6 Hypokalemia; E78.00 Pure hypercholesterolemia, unspecified; N39.0 Urinary tract infection, site not specified; N28.89 Other specified disorders of kidney and ureter; Z87.442 Personal history of urinary calculi; Z90.5 Acquired absence of kidney; Z79.84 Long term (current) use of oral hypoglycemic drugs; Z79.4 Long term (current) use of insulin; Z79.899 Other long term (current) drug therapy; Z98.890 Other specified postprocedural states
CPT/HCPCS: 52332; 96376 ×2; 96361; 96365; 96375; 99285; 80053 ×2; 83690; 85025 ×2; 87088; 82948 ×2; 81001; 81025; 36415 ×2; 74018; 76770; 96366; G0378 ×19; J7030; A4354; C1758; C2617; S0028 ×3; J3010; J3490 ×3; J2270; J0696 ×2; J2250; J2405 ×3; J1885 ×2; J2765; A4358; C1769; A4600; J2001; J2704; Q9967

== ENCOUNTER 2023-04-24 10:57 | Inpatient (IN) | payer MEDICAID ==
[~2023-04-24] VITALS: Ht 162.6 cm; Wt 116.6 kg
[~2023-04-24 10:57] MED LIST changes: +ACET-2123 PO; -ACET1TAB12 PO; +APIX5TAB PO; +ASCO100031 PO; +ATOR20TA65 PO; -CEPH500B PO; +CHOL12509 PO; -DOCU-116 PO; +FERR325T22 PO; +GABA300S3 PO; -IBUP-2077 PO; -INSU100C6 SQ; -LEVO500T2 PO; +LISI10TA24 PO; +METF-444 PO; -NPH,100V SQ; -PREN1TAB89 PO; +SEMA0.258 SQ; +TAMS-1 PO; +TRAM50TA4 PO; +VITAD50000 PO; +sumatriptan PO
[2023-04-24 12:20] LABS: BASOPHILS # (AUTO) 0.05 K/uL (0.00-0.20); BASOPHILS % (AUTO) 0.3 % (0.0-5.0); EOSINOPHILS % (AUTO) 0.6 % (0.0-8.0); HEMATOCRIT 34.4 % (36-48); IMMATURE GRANULOCYTE ABSOLUTE 0.09 K/uL (0-1); LYMPHOCYTES # (AUTO) 1.8 K/uL (1.0-4.8); LYMPHOCYTES % (AUTO) 10.4 % (21.0-51.0); MEAN CORPUSCULAR HEMOGLOBIN 25.4 pg (27.0-33.0); MEAN CORPUSCULAR HGB CONC 31.7 g/dL (32.0-36.0); MEAN CORPUSCULAR VOLUME 80.2 fL (79-99); MONOCYTES # (AUTO) 1.4 K/uL (0.1-1.0); NEUTROPHILS # (AUTO) 13.8 K/uL (1.8-7.7); NEUTROPHILS % (AUTO) 80.2 % (40.0-77.0); PLATELET COUNT (AUTO) 362 K/uL (130-400); RED BLOOD CELL COUNT(AUTO) 4.29 MIL/uL (4.00-5.50); RED CELL DISTRIBUTION WIDTH 15.8 % (11.0-15.5); WHITE BLOOD COUNT (AUTO) 17.2 K/uL (4.8-10.8)
[2023-04-24 12:56] LABS: CREATININE 0.8 mg/dL (0.5-1.5)
[2023-04-24 13:00] LABS: ALBUMIN 3.1 g/dL (3.5-5.0); BILIRUBIN,TOTAL 0.2 mg/dL (0.2-1.0); TOTAL PROTEIN, SERUM 8.1 g/dL (6.0-8.3)
[2023-04-24] MEDS: MORPHINE 4 MG SYG IVP ONE (13:01)
[2023-04-24] MEDS: LACTATED RINGERS 1000ML 1,000 ML IV ONE (13:02)
[2023-04-24] MEDS: ONDANSETRON 4MG INJ IVP ONE (13:02)
[2023-04-24] MEDS ORDERED: IOHEXOL-350 75 ML VIAL IV ONE (13:08)
[2023-04-24 13:55] LABS: BILIRUBIN,URINE NEGATIVE (NEGATIVE); COLOR,URINE YELLOW (YELLOW); GLUCOSE, URINE (UA) NEGATIVE (NEGATIVE); KETONES,URINE NEGATIVE (NEGATIVE); LEUKOCYTE ESTERASE ,URINE 500 Leu/uL (NEGATIVE); NITRATE,URINE NEGATIVE (NEGATIVE); OCCULT BLOOD,URINE NEGATIVE (NEGATIVE); PH,URINE 5.5 (5.0-8.0); PROTEIN,URINE 30 mg/dL (NEGATIVE); UROBILINOGEN,URINE 0.2 mg/dL (0.2-1.0)
[2023-04-24 14:11] LABS: ADD UA MICROSCOPIC YES; APPEARANCE,URINE CLOUDY (CLEAR)
[2023-04-24 14:13] LABS: BACTERIA,URINE MANY /HPF (None Seen); MUCUS,URINE FEW LPF (None Seen); RBC,URINE 0-1 /HPF (0-1); SQUAMOUS EPITHELIAL CELL,UR MANY /HPF (0-2); WBC,URINE TNTC /HPF (0-1)
[2023-04-24] MEDS: HYDROMORPHONE 1 MG INJ IVP ONE (15:47)
[2023-04-24] MEDS ORDERED: ACETAMINOPHEN 325 MG TAB PO PRN (16:30)
[2023-04-24] MEDS: ZOSYN 3.375GM +NS 50ML IV ONE (16:46)
[2023-04-24] MEDS: 0.9%NACL 1000ML 1,000 ML IV SCH (16:46)
[2023-04-24 17:05] LABS: INR 0.98 (0.85-1.15); PROTHROMBIN TIME 11.4 SEC (9.6-11.6)
[2023-04-24 17:07] LABS: PARTIAL THROMBOPLASTIN TIME 35.6 SEC (26.3-35.5)
[2023-04-24 17:20] LABS: THYROID STIMULATING HORMONE 0.03 uIU/mL (0.36-3.74)
[2023-04-24 17:28] LABS: SARS-CoV-2, RNA, NAAT NEGATIVE SARS CoV-2 (NEGATIVE)
[2023-04-24 17:31] LABS: RAPID GROUP A STREP positive (NEGATIVE)
[2023-04-24 17:40] LABS: INFLUENZA TYPE A Negative For Type A (NEGATIVE); INFLUENZA TYPE B Negative For Type B (NEGATIVE)
[2023-04-24] MEDS: PANTOPRAZOLE 40 MG/VIAL IVP SCH (18:43)
[2023-04-24] MEDS: KETOROLAC 15MG/ML VIAL (15MG/ML) IV PRN (19:17)
[2023-04-24] MEDS ORDERED: ONDA-105 PO (20:20)
[2023-04-24] MEDS: INSULIN HUMULIN R 100 UNIT/ML 3ML SQ SCH (21:00)
[2023-04-24] MEDS: DEXTROSE 50%-WATER 50 ML DISP.SYRIN IV PRN (21:41)
[2023-04-24] MEDS: ZOSYN 3.375GM +NS 50ML IVPB SCH (22:00)
[2023-04-24] MEDS ORDERED: GLUCAGON 1MG KIT 1 MG ML IM PRN (22:00)
[2023-04-24] MEDS ORDERED: 0.9%NACL 50ML IV SCH (22:00)
[2023-04-24] MEDS: HYDROMORPHONE 0.5 MG SYG (0.5MG/0.5ML) IVP PRN (22:24)
[2023-04-24] MEDS: VANCOMYCIN 1.25 GM/250 ML BAG 250 ML IV SCH (22:59)
[2023-04-24] MEDS ORDERED: LACTATED RINGERS 1000ML 1,000 ML IV SCH (23:00)
[2023-04-24] MEDS ORDERED: VANCOMYCIN PROTOCOL PER PHARMACY IV SCH (23:00)
[2023-04-24] MEDS: DEXTROSE 5 % AND 0.9 % NACL 1,000 ML IV SCH (23:13)
[2023-04-24] MEDS: THIAMINE HCL 100 MG/ML 2ML VIAL IVP SCH (23:26)
[2023-04-24] MEDS: FOLIC ACID 5 MG/ML VIAL IV SCH (23:29)
[2023-04-24] MEDS ORDERED: COMPOUND IV REFRIGERATED 1 EACH IVSOLN MISC PRN (23:30)
[2023-04-25] VITALS (9 sets, daily range): BP systolic 102–125; BP diastolic 66–79; PULSE 68–87; RESP 16–20; O2SAT 98–99
[2023-04-25] MEDS: ONDANSETRON 4MG INJ IVP PRN (00:12)
[2023-04-25 05:44] LABS: BASOPHILS # (AUTO) 0.03 K/uL (0.00-0.20); BASOPHILS % (AUTO) 0.3 % (0.0-5.0); EOSINOPHILS # (AUTO) 0.16 K/uL (0.00-0.70); EOSINOPHILS % (AUTO) 1.5 % (0.0-8.0); HEMATOCRIT 28.1 % (36-48); IMMATURE GRANULOCYTE ABSOLUTE 0.04 K/uL (0-1); LYMPHOCYTES # (AUTO) 1.4 K/uL (1.0-4.8); LYMPHOCYTES % (AUTO) 13.2 % (21.0-51.0); MEAN CORPUSCULAR HEMOGLOBIN 24.9 pg (27.0-33.0); MEAN CORPUSCULAR VOLUME 80.5 fL (79-99); MONOCYTES # (AUTO) 0.8 K/uL (0.1-1.0); MONOCYTES % (AUTO) 7.8 % (3.0-13.0); NEUTROPHILS # (AUTO) 7.9 K/uL (1.8-7.7); NEUTROPHILS % (AUTO) 76.8 % (40.0-77.0); PLATELET COUNT (AUTO) 309 K/uL (130-400); RED BLOOD CELL COUNT(AUTO) 3.49 MIL/uL (4.00-5.50); RED CELL DISTRIBUTION WIDTH 15.9 % (11.0-15.5); WHITE BLOOD COUNT (AUTO) 10.3 K/uL (4.8-10.8)
[2023-04-25 06:00] LABS: HEMOGLOBIN A1C 5.8 % (4.0-6.0)
[2023-04-25 06:02] LABS: ALBUMIN 2.5 g/dL (3.5-5.0); BILIRUBIN,TOTAL 0.3 mg/dL (0.2-1.0); CREATININE 0.8 mg/dL (0.5-1.5); MAGNESIUM 1.9 mg/dL (1.80-2.40); POTASSIUM 4.1 mmol/L (3.5-5.1); TOTAL PROTEIN, SERUM 6.8 g/dL (6.0-8.3)
[2023-04-25] MEDS ORDERED: FERR-82 PO (07:51)
[2023-04-25] MEDS ORDERED: DOCU100C33 PO (07:51)
[2023-04-25] MEDS ORDERED: APIX5TAB PO (07:51)
[2023-04-25] MEDS ORDERED: ASCO100031 PO (07:51)
[2023-04-25] MEDS ORDERED: FLUO118.2 TP (07:51)
[2023-04-25] MEDS ORDERED: [UNRECOGNIZED DRUG - OTHER] (07:51)
[2023-04-25] MEDS ORDERED: LIFI1DRO OP (07:51)
[2023-04-25] MEDS ORDERED: FE F1CAP33 PO (07:51)
[2023-04-25] MEDS ORDERED: VITAMIN D (07:51)
[2023-04-25] MEDS ORDERED: ONDA-105 PO (07:51)
[2023-04-25] MEDS ORDERED: GABA300C PO (07:51)
[2023-04-25] MEDS: ENOXAPARIN SODIUM 40 MG/0.4 ML SYRINGE SQ SCH (09:26)
[2023-04-25] MEDS ORDERED: IOHEXOL-350 50ML VIAL IV ONE (12:49)
[2023-04-26] VITALS (8 sets, daily range): BP systolic 97–163; BP diastolic 57–78; PULSE 58–86; RESP 16–20; O2SAT 100
[2023-04-26 03:55] LABS: BASOPHILS # (AUTO) 0.03 K/uL (0.00-0.20); BASOPHILS % (AUTO) 0.4 % (0.0-5.0); EOSINOPHILS % (AUTO) 2.5 % (0.0-8.0); HEMATOCRIT 26.5 % (36-48); IMMATURE GRANULOCYTE ABSOLUTE 0.02 K/uL (0-1); LYMPHOCYTES % (AUTO) 25.7 % (21.0-51.0); MEAN CORPUSCULAR HEMOGLOBIN 25.1 pg (27.0-33.0); MEAN CORPUSCULAR HGB CONC 31.7 g/dL (32.0-36.0); MEAN CORPUSCULAR VOLUME 79.1 fL (79-99); MONOCYTES # (AUTO) 0.9 K/uL (0.1-1.0); MONOCYTES % (AUTO) 11.4 % (3.0-13.0); NEUTROPHILS # (AUTO) 4.7 K/uL (1.8-7.7); NEUTROPHILS % (AUTO) 59.7 % (40.0-77.0); PLATELET COUNT (AUTO) 315 K/uL (130-400); RED BLOOD CELL COUNT(AUTO) 3.35 MIL/uL (4.00-5.50); RED CELL DISTRIBUTION WIDTH 15.6 % (11.0-15.5); WHITE BLOOD COUNT (AUTO) 7.9 K/uL (4.8-10.8)
[2023-04-26 04:11] LABS: ALBUMIN 2.5 g/dL (3.5-5.0); BILIRUBIN,TOTAL 0.3 mg/dL (0.2-1.0); CREATININE 0.8 mg/dL (0.5-1.5); POTASSIUM 3.8 mmol/L (3.5-5.1); TOTAL PROTEIN, SERUM 6.7 g/dL (6.0-8.3)
[2023-04-26] MEDS: DEXTROSE 5 % AND 0.9 % NACL 1,000 ML IV SCH (12:10)
[2023-04-27] VITALS (7 sets, daily range): BP systolic 98–123; BP diastolic 58–72; PULSE 57–76; RESP 17–18; O2SAT 95–98
[2023-04-27 04:15] LABS: BASOPHILS # (AUTO) 0.03 K/uL (0.00-0.20); BASOPHILS % (AUTO) 0.4 % (0.0-5.0); EOSINOPHILS % (AUTO) 2.5 % (0.0-8.0); HEMATOCRIT 25.2 % (36-48); IMMATURE GRANULOCYTE ABSOLUTE 0.03 K/uL (0-1); LYMPHOCYTES # (AUTO) 1.6 K/uL (1.0-4.8); LYMPHOCYTES % (AUTO) 19.6 % (21.0-51.0); MEAN CORPUSCULAR HEMOGLOBIN 25.4 pg (27.0-33.0); MEAN CORPUSCULAR HGB CONC 32.9 g/dL (32.0-36.0); MEAN CORPUSCULAR VOLUME 77.1 fL (79-99); MONOCYTES # (AUTO) 0.9 K/uL (0.1-1.0); NEUTROPHILS # (AUTO) 5.3 K/uL (1.8-7.7); NEUTROPHILS % (AUTO) 66.1 % (40.0-77.0); PLATELET COUNT (AUTO) 302 K/uL (130-400); RED BLOOD CELL COUNT(AUTO) 3.27 MIL/uL (4.00-5.50); RED CELL DISTRIBUTION WIDTH 15.3 % (11.0-15.5)
[2023-04-27 04:33] LABS: ALBUMIN 2.4 g/dL (3.5-5.0); BILIRUBIN,TOTAL 0.4 mg/dL (0.2-1.0); CREATININE 1.5 mg/dL (0.5-1.5); POTASSIUM 4.4 mmol/L (3.5-5.1); TOTAL PROTEIN, SERUM 6.5 g/dL (6.0-8.3)
[2023-04-28 00:21] VITALS: BP 137/86; PULSE 80; RESP 18
[2023-04-28 04:31] VITALS: BP 110/72; PULSE 73; RESP 18
[2023-04-28 07:30] VITALS: O2SAT 97
[2023-04-28 08:00] VITALS: BP 117/74; PULSE 71; RESP 16
[2023-04-28 12:00] VITALS: BP 112/75; PULSE 77; RESP 16
[2023-04-28] MEDS ORDERED: TRAMADOL HCL 50 MG TABLET PO PRN (13:00)
[2023-04-28 15:29] VITALS: BP 135/89; PULSE 75; RESP 18
[2023-04-28] MEDS ORDERED: TRAM50TA4 PO (15:31)
== END 2023-04-28 16:15 | disposition home or self-care (01) | DRG 720 ==
LOC: EDH 10:57 → EDHIP 10:58 → 4CH 04-25 03:13
PROVIDERS: ADMIT Internal Medicine; ATTEND Internal Medicine
DX: A41.50 Gram-negative sepsis, unspecified (principal); D84.89 Other immunodeficiencies; E11.649 Type 2 diabetes mellitus with hypoglycemia without coma; E87.1 Hypo-osmolality and hyponatremia; E86.0 Dehydration; K57.32 Diverticulitis of large intestine without perforation or abscess without bleeding; D64.9 Anemia, unspecified; E66.01 Morbid (severe) obesity due to excess calories; J02.0 Streptococcal pharyngitis; E86.1 Hypovolemia; E78.5 Hyperlipidemia, unspecified; Z20.822 Contact with and (suspected) exposure to COVID-19; N39.0 Urinary tract infection, site not specified; Z79.01 Long term (current) use of anticoagulants; Z90.5 Acquired absence of kidney; Z68.41 Body mass index [BMI] 40.0-44.9, adult; Z79.4 Long term (current) use of insulin; Z83.3 Family history of diabetes mellitus; Z85.43 Personal history of malignant neoplasm of ovary; Z85.528 Personal history of other malignant neoplasm of kidney; Z90.710 Acquired absence of both cervix and uterus
CPT/HCPCS: 36415; 70491; 71045; 74177; 80053; 80202; 81001; 82533; 82948; 83036; 83605; 83690; 83735; 84145; 84439; 84443; 84481; 84703; 85025; 85610; 85651; 85730; 86140; 86308; 87040; 87088; 87635; 87804; 87880; C9113; G0378; J1170; J1650; J1885; J2270; J2405; J2543; J3411; J7030; J7070; J7120; Q9967; 3370

== ENCOUNTER 2024-08-29 04:44 | Emergency (ER) | payer MEDICAID ==
[~2024-08-29] VITALS: Ht 162.6 cm; Wt 101.2 kg
[~2024-08-29 04:44] MED LIST changes: -ACET-2123 PO; -ASCO100031 PO; +ATOR10 PO; -ATOR20TA65 PO; -CHOL12509 PO; +DOCU-116 PO; +DOCU100C33 PO; +FE F1CAP33 PO; +FERR-82 PO; -FERR325T22 PO; +GABA-529 PO; +GABA300C PO; -GABA300S3 PO; +INSU10VI3 SQ; +LIFI1DRO5 OU; -LISI10TA24 PO; +METH-662 PO; +ONDA-105 PO; +SUMA100T16 PO; -TAMS-1 PO; -VITAD50000 PO; -sumatriptan PO
[2024-08-29 05:04] LABS: BASOPHILS # (AUTO) 0.04 K/uL (0.00-0.20); BASOPHILS % (AUTO) 0.3 % (0.0-5.0); EOSINOPHILS # (AUTO) 0.14 K/uL (0.00-0.70); EOSINOPHILS % (AUTO) 1.1 % (0.0-8.0); HEMATOCRIT 33.8 % (36-48); IMMATURE GRANULOCYTE ABSOLUTE 0.07 K/uL (0-1); LYMPHOCYTES # (AUTO) 2.8 K/uL (1.0-4.8); LYMPHOCYTES % (AUTO) 22.2 % (21.0-51.0); MEAN CORPUSCULAR HEMOGLOBIN 26.4 pg (27.0-33.0); MEAN CORPUSCULAR HGB CONC 32.8 g/dL (32.0-36.0); MEAN CORPUSCULAR VOLUME 80.5 fL (79-99); MONOCYTES # (AUTO) 0.8 K/uL (0.1-1.0); MONOCYTES % (AUTO) 6.5 % (3.0-13.0); NEUTROPHILS # (AUTO) 8.7 K/uL (1.8-7.7); NEUTROPHILS % (AUTO) 69.3 % (40.0-77.0); PLATELET COUNT (AUTO) 336 K/uL (130-400); RED CELL DISTRIBUTION WIDTH 15.2 % (11.0-15.5); WHITE BLOOD COUNT (AUTO) 12.5 K/uL (4.8-10.8)
[2024-08-29 05:14] LABS: CREATININE 0.8 mg/dL (0.5-1.0); POTASSIUM 3.8 mmol/L (3.5-5.1)
[2024-08-29] MEDS: ondanSETRON 4MG INJ IVP ONE (05:22)
[2024-08-29] MEDS: morPHINE 2 MG SYG IVP ONE ×2 (05:22→06:26)
[2024-08-29 05:25] LABS: ALBUMIN 3.3 g/dL (3.5-5.0); BILIRUBIN,DIRECT 0.1 mg/dL (0.0-0.3); BILIRUBIN,TOTAL 0.2 mg/dL (0.2-1.0); TOTAL PROTEIN, SERUM 7.9 g/dL (6.0-8.3)
--- NOTE | 2024-08-29 05:54 | ERN ---
ED Note History of Present Illness Stated Complaint: R SIDED ABDOMINAL PAIN Chief Complaint: Abdominal Pain Time Seen by MD: 04:59 Dictation: This is a 44-year-old morbidly obese female 7 presented with right-sided abdominal pain which is diffuse since Thursday. She stated that she helped her friend who was choking who was morbidly obese with a Heimlich maneuver She also reported nausea for 3 days and 1 episode of emesis. She did not fall down. She was here a few weeks ago with similar kind of pain that was felt to be related to umbilical hernia. Patient has a extensive history of multiple surgeries and ventral hernia as well as umbilical hernia. , surgeon-discussed with patient and spouse plans for ventral hernia repair sometime in September or October. 2024 Temperature 98.6 pulse 89 respirations 20 blood pressure 121/79 with a pulse oximetry of 98% on room air Patient has chronic medical problems include diabetes mellitus, history of blood clots, anemia, renal cell carcinoma status post left nephrectomy. She also had umbilical hernia repair Allergies: Coded Allergies: No Known Allergies (Unverified Allergy, 06/22/12) Home Meds Active Scripts Methocarbamol (Robaxin) 750 Mg Tab, 500 MG PO TID, #15 TAB 0 Refills Prov:CARMELO BARRETT MD 07/07/23 Gabapentin (Gabapentin) 100 Mg Capsule, 100 MG PO TID, #21 CAP 0 Refills Prov:CARMELO BARRETT MD 07/07/23 Docusate Sodium (Colace) 100 Mg Capsule, 100 MG PO BID, #30 CAP 0 Refills Prov:CARMELO BARRETT MD 07/07/23 Tramadol Hcl (Tramadol HCl) 50 Mg Tablet, 50 MG PO Q6HPRN PRN for PAIN, #28 TAB 0 Refills Prov:CARMELO BARRETT MD 07/07/23 Reported Medications Metformin HCl (Metformin HCl) 500 Mg Tablet, 500 MG PO BID, TAB 07/02/23 Atorvastatin Calcium (LIPITOR) 20 Mg Tab, 20 MG PO HS, TAB 07/02/23 Insuln Asp Prt/Insulin Aspart (Novolog Mix 70-30 Vial) 100 Unit/Ml (70-30) Vial, 35 UNITS SQ BID, VIAL 07/02/23 Fe Fumarate/FA/Mv, Min Comb#15 (Centratex Capsule) 106 Mg Iron-1 Mg Capsule, 1 EACH PO DAILY, CAP 07/02/23 Sumatriptan Succinate (Sumatriptan Succinate) 100 Mg Tablet, 100 MG PO BID PRN for HEADACHE, TAB 07/02/23 Gabapentin (Neurontin) 300 Mg Capsule, 300 MG PO TID, CAP 07/02/23 Semaglutide (Ozempic) 0.25 Mg/0.4 Ml Pen.injctr, 0.5 MG SQ QWEEK 07/02/23 Lifitegrast (Xiidra) 5 % Droperette, 1 DROP OU BID, DROP 04/25/23 Ondansetron HCl (Ondansetron HCl) 8 Mg Tablet, 8 MG PO [id number] PRN for NAUSEA/VOMITING, TAB 04/25/23 Docusate Sodium (Docusate Sodium) 100 Mg Capsule, 100 MG PO BID, CAP 04/25/23 Ferrous Sulfate (Iron) 325 Mg (65 Mg Iron) Tablet, 325 MG PO QODAY, TAB 04/25/23 Apixaban (Eliquis) 5 Mg Tablet, 5 MG PO BID, TAB 04/25/23 Past Medical History Past Medical History: Anemia, Constipation, Diabetes-Type II, Other Additional Past Medical Hx: KIDNEY TUMOR, BLOOD CLOTS , ABDOMINAL HERNIA Surgical History: Hysterectomy, Cholecystectomy, Other Surgical History Other: D&C, L NEPHRECTOMY Social History: Negative RN Note Reviewed/Agreed w/PFSH: Yes Review of System Dictation Constitutional: Negative for fever,chills, and weight loss Eyes: Negative for injury, pain,redness, and discharge ENT: Negative for injury,pain or swelling Cardiovascular: Negative for chest pain, palpitations, and edema Respiratory: Negative for shortness of breath, cough, and wheezing, Abdomen/GI: Positive for abdominal pain, nausea, vomiting, denied diarrhea, and constipation Back: Negative for injury and pain : Negative for injury, bleeding and discharge MS/Extremity: Negative for injury and deformity Skin: Negative for rash, and discoloration Neuro: Negative for headache, weakness, numbness, tingling, and seizure Psych: Negative for suicide ideation, homicidal ideation, and hallucinations Initial Vital Sign VS Vital Signs Date Time Temp Pulse Resp B/P (MAP) Pulse Ox O2 Delivery O2 Flow Rate FiO2 08/29/24 04:46 98.6 89 20 121/79 98 Room Air 0 08/29/24 05:05 21 Physical Exam Dictation General: awake, alert, NAD morbidly obese female Head/Face: Normocephalic, atraumatic Eyes: PERRL, EOMI, vision at baseline ENT: oral cavity clear, TMs clear, no signs of infection Neck: Trachea midline, supple, no nuchal rigidity Cardiovascular: RRR, normal S1/S2, No MRGs, no JVD Respiratory: CTAB, no respiratory distress, No rales or wheezes Abdomen: Soft, non-tender, non-distended, normal bowel sounds, no guarding or rebound. Umbilical hernia and also right-sided ventral hernia in the paraumbilical area. Very soft to palpation. Skin: Warm, dry, normal turgor, no rash MS/Extremity: Pulses equal, no cyanosis, neurovascular intact, FROM Neuro: COAx4, GCS 15, strength 5/5, CN 2-12 intact, normal cerebellar exam, normal gait, Psych: Normal behavior, mood, and affect normal Extremities-trace edema without any palpable cords, Homans sign is negative Results (Laboratory/Radiology) Laboratory/Radiology Laboratory Tests Test 08/29/24 04:57 08/29/24 06:42 White Blood Count 12.5 K/uL (4.8-10.8) H Red Blood Count 4.20 MIL/uL (4.00-5.50) Hemoglobin 11.1 g/dL (12.0-16.0) L Hematocrit 33.8 % (36-48) L Mean Corpuscular Volume 80.5 fL (79-99) Mean Corpuscular Hemoglobin 26.4 pg (27.0-33.0) L Mean Corpuscular Hemoglobin Concent 32.8 g/dL (32.0-36.0) Red Cell Distribution Width 15.2 % (11.0-15.5) Platelet Count 336 K/uL (130-400) Mean Platelet Volume 9.9 fL (7.5-10.5) Immature Granulocyte % (Auto) 0.6 % (0-1) Neutrophils (%) (Auto) 69.3 % (40.0-77.0) Lymphocytes (%) (Auto) 22.2 % (21.0-51.0) Monocytes (%) (Auto) 6.5 % (3.0-13.0) Eosinophils (%) (Auto) 1.1 % (0.0-8.0) Basophils (%) (Auto) 0.3 % (0.0-5.0) Neutrophils # (Auto) 8.7 K/uL (1.8-7.7) H Lymphocytes # (Auto) 2.8 K/uL (1.0-4.8) Monocytes # (Auto) 0.8 K/uL (0.1-1.0) Eosinophils # (Auto) 0.14 K/uL (0.00-0.70) Basophils # (Auto) 0.04 K/uL (0.00-0.20) Absolute Immature Granulocyte (auto 0.07 K/uL (0-1) Nucleated Red Blood Cells 0.0 % (0.0-0.19) Sodium Level 136 mmol/L (136-145) Potassium Level 3.8 mmol/L (3.5-5.1) Chloride Level 101 mmol/L (101-111) Carbon Dioxide Level 23 mmol/L (21-32) Blood Urea Nitrogen 17 mg/dL (7-18) Creatinine 0.8 mg/dL (0.5-1.0) Glomerular Filtration Rate Calc 94 mL/min (>90) Random Glucose 125 mg/dL (70-105) H Total Calcium 8.7 mg/dL (8.5-10.1) Total Bilirubin 0.2 mg/dL (0.2-1.0) Direct Bilirubin 0.1 mg/dL (0.0-0.3) Aspartate Amino Transf (AST/SGOT) 16 U/L (10-37) Alanine Aminotransferase (ALT/SGPT) 33 U/L (12-78) Alkaline Phosphatase 95 U/L (50-136) Total Protein 7.9 g/dL (6.0-8.3) Albumin 3.3 g/dL (3.5-5.0) L Lipase 97 U/L (16-77) H Serum Test, Qualitative NEGATIVE (NEGATIVE) Urine Color LIGHT-YELLOW (YELLOW) Urine Appearance CLEAR (CLEAR) Urine pH 6.0 (5.0-8.0) Urine Specific Hayden 1.023 (1.001-1.031) Urine Protein NEGATIVE mg/dL (NEGATIVE) Urine Glucose (UA) NEGATIVE mg/dL (NEGATIVE) Urine Ketones NEGATIVE mg/dL (NEGATIVE) Urine Occult Blood NEGATIVE (NEGATIVE) Urine Nitrate NEGATIVE (NEGATIVE) Urine Bilirubin NEGATIVE mg/dL (NEGATIVE) Urine Urobilinogen 0.2 mg/dL (0.2-1.0) Urine Leukocyte Esterase NEGATIVE Karishma/uL Labs Reviewed?: Yes CT Scan Comment: REASON: R/O KIDNEY STONES ORDERING PHYSICIAN: PETERSON SHELDON PROCEDURE: ABD PEL WO - CT ABDOMEN/PELVIS W/O CONTRAST Exam Type: CT ABDOMEN/PELVIS W/O CONTRAST Clinical Information: R/O KIDNEY STONES Comparison: None CT Dose Index (CTDI): 10.20 mGy Dose Length Product (DLP): 530.00 total mGy-cm PROTOCOL: Routine noncontrast helical scanning of the abdomen and pelvis was performed at 5mm collimation. Findings: The left kidney surgically absent. The right kidney is unremarkable without evidence of nephrolithiasis or acute disease. A large umbilical hernia is seen containing multiple loops of small and large bowel without incarceration or strangulation. Large and small bowel loops are otherwise unremarkable. The lung bases are clear. The stomach is unremarkable. It shows no wall thickening. No gross ulceration is seen. It is not overly distended. There are no surrounding inflammatory changes. No wall lesions are identified to suggest cancer. The spleen is unremarkable. It is not enlarged. The pancreas shows normal anatomy. It is not fatty replaced. It shows no lesions. The pancreatic duct is not dilated. The gallbladder is surgically absent. The adrenal glands are unremarkable. There is no enlargement. No lesions are noted. The liver is unremarkable. It shows no focal masses. The appendix is unremarkable. It shows no evidence of inflammation. No appendicolith is seen. The urinary bladder is unremarkable. There is no wall thickening to suggest tumor or inflammation. There are no intraluminal calculi. There are no diverticula. There is no evidence of chronic bladder outlet obstruction. There is no evidence of urinary bladder distention to suggest urinary retention. The other pelvic structures are unremarkable. The bony and vascular structures are unremarkable for the patient's age. IMPRESSION: NO RENAL STONES. NO ACUTE PATHOLOGY OR INFLAMMATION SEEN. The left kidney surgically absent. The right kidney is unremarkable without evidence of nephrolithiasis or acute disease. A large umbilical hernia is seen containing multiple loops of small and large bowel without incarceration or strangulation. Large and small bowel loops are otherwise unremarkable. This study was performed using dose reduction techniques to include automated exposure control and/or adjustment of the mA and/or kV according to patient size. ED Course ED Course Orders Procedure Category Date Status Time Cbc With Differential LAB 08/29/24 Complete 04:47 Basic Metabolic Panel LAB 08/29/24 Complete 04:47 Hepatic Function Panel LAB 08/29/24 Complete 04:47 Lipase LAB 08/29/24 Complete 04:47 Urinalysis Profile LAB 08/29/24 Complete 04:47 Testing, LAB 08/29/24 Complete Serum Hcg 04:59 Morphine 2mg Syg PHA 08/29/24 Complete (Morphine 2mg Syg) 05:30 Ondansetron 4mg Inj PHA 08/29/24 Complete (Zofran 4mg Inj) 05:30 Morphine 2mg Syg PHA 08/29/24 Complete (Morphine 2mg Syg) 06:30 Current Medications Medications (Trade) Dose Ordered Sig/Yolette Route PRN Reason Start Time Stop Time Status Last Admin Dose Admin Morphine Sulfate (morPHINE 2MG SYG) 2 mg ONCE ONCE IVP 08/29/24 05:30 08/29/24 05:31 DC 08/29/24 05:22 Morphine Sulfate (morPHINE 2MG SYG) 2 mg ONCE ONCE IVP 08/29/24 06:30 08/29/24 06:31 DC 08/29/24 06:26 Ondansetron HCl (zoFRAN 4MG INJ) 4 mg ONCE ONCE IVP 08/29/24 05:30 08/29/24 05:31 DC 08/29/24 05:22 Vital Signs Date Time Temp Pulse Resp B/P (MAP) Pulse Ox O2 Delivery O2 Flow Rate FiO2 08/29/24 06:29 79 16 91/57 96 Room Air* 0 21 08/29/24 05:05 78 20 109/56 98 Room Air* 0 21 08/29/24 04:46 98.6 89 20 121/79 98 Room Air 0 We will perform diagnostic labs, advanced imaging and administer medications according to the patient's complaint. Once the results are available, will review and personally interpreted the labs to rule out any acute life- threatening emergency the trach require immediate intervention and treatment. I will then re-evaluate the patient after treatment and diagnostic exams have return to determine whether the patient requires any further testing, can safely be discharged home or need further admission to hospital for additional treatment and evaluation. Labs reviewed CBC showed a white count of 12.5 hemoglobin 11. BNP 7 is with a normal limits lipase is 97 slightly high urine test is negative. I have updated the patient and her on all the available labs and as she had CT scan of the abdomen just a few weeks ago, I would hold off on any further imaging as the abdominal exam is quite benign. In view of her single kidney, would avoid nephrotoxic agents and contrast Medical Decision Making MDM MDM: Differential diagnosis: Constipation, ventral hernia pain, ventral hernia with obstruction and gangrene Rationale: Tests considered and ordered secondary to shared decision making include: Previous outside records reviewed: Old ER visits. Risk of complication and/or morbidity or mortality of patient management: None Medications-Per medication reconciliation Need for hospitalization: Patient does not meet criteria for hospitalization. Need for emergency major/minor surgery: No Patient is a 44-year-old female coming in with chronic abdominal pain. She states that she is requiring surgery he is pending re-evaluation by surgeon. Patient states that she wants to hold off on a CT laboratory workup within normal limits. I did advised her appropriate follow up with surgeon. Patient got pain relief states he feels better with the home stable condition. I did advise her if she has pain again to seek immediate help with the nearest ER or with surgeon or PCP. Patient agrees with plan to discharge he will be discha rged in stable condition. Problem List Problem List: (1) Abdominal pain (2) Ventral hernia (3) Umbilical hernia (4) History of renal cell carcinoma (5) Grand multipara DX & DISP Disposition: Discharge Departure Impression: Primary Impression: Abdominal pain Additional Impressions: Ventral hernia, Umbilical hernia, History of renal cell carcinoma, Grand multipara Condition: Stable Scripts Gabapentin (Gabapentin) 100 Mg Capsule 1 CAP PO BID PRN for PAIN LEVEL 1 TO 5 for 5 Days, #10 CAP 0 Refills Prov: THAIS ARAUJO MD 08/29/24 Additional Instructions: Patient and the caregiver have been informed of all the diagnostic tests and the imaging conducted during the today's visit to the emergency room and has verbalized understanding of the results I have personally reviewed and interpreted all diagnostic exams performed here in the ER today as well as the vital signs documented by the nursing staff. The patient is now being discharged to home and should follow up with the primary care physician or the specialist as directed by the ER staff. Follow-up with primary care provider in 1 to 2 days. Take medications as directed here in the emergency room. Okay to continue home medications unless otherwise discussed during your visit in the emergency room today. Return to your nearest emergency room if symptoms worsen or if there is no improvement. Call 911 if you need immediate assistance. Take Tylenol or Motrin over-the- counter as needed and if no contraindications are present. Increase oral hydration. A wound culture or urine culture was ordered here in the emergency room department please follow-up with primary care provider and advise them to get repeat ports from our facility. If you had any Sha wrap/splints that were applied here, please do not remove them until you see your primary care or specialty. Referrals: RUDY RAY (PCP) Time of Disposition: 07:46 CLARISSA RIZZO MD Aug 29, 2024 05:54 THAIS ARAUJO MD Aug 29, 2024 07:48
[2024-08-29 06:57] LABS: APPEARANCE,URINE CLEAR (CLEAR); BILIRUBIN,URINE NEGATIVE (NEGATIVE); COLOR,URINE LIGHT-YELLOW (YELLOW); GLUCOSE, URINE (UA) NEGATIVE (NEGATIVE); KETONES,URINE NEGATIVE (NEGATIVE); LEUKOCYTE ESTERASE ,URINE NEGATIVE Leu/uL (NEGATIVE); NITRATE,URINE NEGATIVE (NEGATIVE); OCCULT BLOOD,URINE NEGATIVE (NEGATIVE); PROTEIN,URINE NEGATIVE (NEGATIVE); UROBILINOGEN,URINE 0.2 mg/dL (0.2-1.0)
[2024-08-29 07:03] LABS: ADD UA MICROSCOPIC NO
[2024-08-29] MEDS ORDERED: GABA-529 PO (07:47)
[2024-08-29 08:08] VITALS: BP 114/63; PULSE 80; RESP 16; TEMP 97.9; O2SAT 99
== END 2024-08-29 08:10 | disposition home or self-care (01) ==
LOC: EDH 04:44
DX: K43.9 Ventral hernia without obstruction or gangrene (principal); K42.9 Umbilical hernia without obstruction or gangrene; R10.9 Unspecified abdominal pain; E11.9 Type 2 diabetes mellitus without complications; Z64.1 Problems related to multiparity; Z79.01 Long term (current) use of anticoagulants; Z79.4 Long term (current) use of insulin; Z79.84 Long term (current) use of oral hypoglycemic drugs; Z79.85 Long-term (current) use of injectable non-insulin antidiabetic drugs; Z79.899 Other long term (current) drug therapy; Z85.528 Personal history of other malignant neoplasm of kidney; Z90.49 Acquired absence of other specified parts of digestive tract; Z90.5 Acquired absence of kidney; Z90.710 Acquired absence of both cervix and uterus
CPT/HCPCS: 99284; 96374; 96375; 80076; 80048; 84703; 83690; 85025; 81003; 36415; 96376; J2270 ×2; J2405